=== PATIENT | female | born 1990 | race Two or more races ===

== ENCOUNTER 2020-09-28 11:53 | Emergency (ER) | payer OTHER ==
[2020-09-28 12:11] VITALS: BP 108/67; PULSE 92; TEMP 98.1; BMI 24.2
== END 2020-09-28 12:58 | disposition home or self-care (01) ==
LOC: JERFT 11:53
DX: S63.634A Sprain of interphalangeal joint of right ring finger, initial encounter (principal); W23.1XXA Caught, crushed, jammed, or pinched between stationary objects, initial encounter; Y92.810 Car as the place of occurrence of the external cause
CPT/HCPCS: 73130-TC-RT-FY; 99283-25

== ENCOUNTER 2021-02-19 17:15 | Emergency (ER) | payer OTHER | END 2021-02-19 17:30 | disposition home or self-care (01) | LOC: JVIRT 17:15 | DX: R51.9 Headache, unspecified (principal); R50.9 Fever, unspecified; Z11.52 Encounter for screening for COVID-19 | CPT/HCPCS: 87804; C9803; Q3014-GT; U0003; U0005 ==

== ENCOUNTER 2023-01-23 06:47 | Inpatient (IN) | payer OTHER ==
[2023-01-23] MEDS: ELECTROLYTE-148 SOLN 1,000 ML IV SCH (08:15)
[2023-01-23 08:31] VITALS: BMI 30.8
[2023-01-23 09:13] LABS: BASO % 0.3 % (0-2.0); EOS % 2.8 % (0-4.5); HEMATOCRIT 39.5 % (32.4-45.2); LYMPH % 16.9 % (8-40); MCH 30.6 pg (25.7-33.7); MEAN CELL VOLUME 92.7 fl (80-96); MEAN PLT VOLUME 8.7 fl (7.5-11.1); MONO % 7.3 % (3.8-10.2); NEUT % 72.7 % (42.8-82.8); PLATELET COUNT 273 10^3/uL (134-434); RBC 4.26 M/mm3 (3.60-5.2); RDW 13.3 % (11.6-15.6); WHITE BLOOD COUNT 11.5 K/mm3 (4.0-10.0)
[2023-01-23 09:19] LABS: INR 1.02 (0.83-1.09); PROTHROMBIN TIME (PATIENT) 11.8 SEC (9.7-13.0)
[2023-01-23 09:37] LABS: POTASSIUM 4.1 mmol/L (3.5-5.1)
[2023-01-23 09:39] LABS: BLOOD UREA NITROGEN 7.9 mg/dL (7-18); CALCIUM 8.5 mg/dL (8.5-10.1)
[2023-01-23 09:40] LABS: ALBUMIN 2.6 g/dl (3.4-5.0)
[2023-01-23 09:43] LABS: CREATININE 0.5 mg/dL (0.55-1.3)
[2023-01-23 09:44] LABS: BILIRUBIN,TOTAL 0.6 mg/dL (0.2-1); TOT PROT 6.1 g/dl (6.4-8.2)
[2023-01-23] MEDS: VANCOMYCIN 1,750 MG in DEXTROSE 5%-WATER - 500 ML IVPB SCH ×2 (10:55→19:25)
[2023-01-23] MEDS ORDERED: OXYTOCIN 30 UNITS in 0.9% NS 30 UNIT/500 ML INFUS.BAG IVPB ONE (14:40)
[2023-01-23] MEDS ORDERED: ELECTROLYTE-148 SOLN 1,000 ML IV SCH (14:45)
[2023-01-23] MEDS: OXYTOCIN 30 UNITS in 0.9% NS 30 UNIT/500 ML INFUS.BAG IVPB SCH (14:55)
[2023-01-24] MEDS ORDERED: CALCIUM CARBONATE 650 MG TABLET PO ONE (00:15)
[2023-01-24] MEDS: ELECTROLYTE-148 SOLN 1,000 ML IV SCH ×2 (02:00→13:46)
[2023-01-24] MEDS: OXYTOCIN 30 UNITS in 0.9% NS 30 UNIT/500 ML INFUS.BAG IVPB SCH (02:39)
[2023-01-24] MEDS: VANCOMYCIN PREMIX 1.75 GM 1,750 MG/350 ML PIGGYBACK IVPB SCH ×2 (03:18→13:45)
[2023-01-24] MEDS ORDERED: BUTORPHANOL TARTRATE 2 MG/ML VIAL IVPB ONE (07:06)
[2023-01-24] MEDS ORDERED: PROMETHAZINE HCL 25 MG/1 ML VIAL IVPB ONE (07:06)
[2023-01-24] MEDS ORDERED: BUTORPHANOL TARTRATE 2 MG/ML VIAL ONE (07:33)
[2023-01-24] MEDS ORDERED: PROMETHAZINE HCL 25 MG/1 ML VIAL ONE (07:33)
[2023-01-24] MEDS ORDERED: OXYTOCIN 20 UNITS in 0.9% NS 20 UNIT/1,000 ML INFUS.BAG IV ONE (10:33)
[2023-01-24] MEDS ORDERED: WITCH HAZEL 50% (TUCKS) 40 PAD/JAR PAD TP PRN (11:26)
[2023-01-24] MEDS ORDERED: METHYLERGONOVINE MALEATE 0.2 MG/1 ML AMP IM PRN (11:26)
[2023-01-24] MEDS ORDERED: oxyCODONE HCL 5 MG TABLET PO PRN (11:26)
[2023-01-24] MEDS ORDERED: BISACODYL 10 MG SUPP.RECT RC PRN (11:26)
[2023-01-24] MEDS ORDERED: BENZOCAINE 28 GM HEMORRHOIDAL OINTMENT TP PRN (11:26)
[2023-01-24] MEDS ORDERED: IBUPROFEN 600 MG TABLET (FP) PO PRN (11:26)
[2023-01-24] MEDS ORDERED: BENZOCAINE 20% 57 GM BOTTLE TP PRN (11:26)
[2023-01-24] MEDS ORDERED: OXYTOCIN 20 UNITS in 0.9% NS 20 UNIT/1,000 ML INFUS.BAG IV SCH (11:30)
[2023-01-24 12:36] LABS: CORD BASE EXCESS -5.9 mmol/L (0-2); CORD HCO3 22.3 mmHg (20-29); CORD PCO2 53.5 mmHg (30-78); CORD pH 7.237 (7.14-7.44)
[2023-01-24 12:41] LABS: CORD BASE EXCESS -6.1 mmol/L (0-2); CORD HCO3 20.5 mmHg (20-29); CORD PCO2 44.3 mmHg (30-78); CORD pH 7.283 (7.14-7.44)
[2023-01-24 14:32] VITALS: RESP 18
[2023-01-24] MEDS: ACETAMINOPHEN 325 MG TABLET (FP) PO PRN ×2 (14:44→20:57)
[2023-01-25 08:15] LABS: BASO % 0.2 % (0-2.0); EOS % 1.5 % (0-4.5); HEMOGLOBIN 12.3 GM/dL (10.7-15.3); MCH 30.3 pg (25.7-33.7); MCHC 32.4 g/dl (32.0-36.0); MEAN CELL VOLUME 93.5 fl (80-96); NEUT % 74.3 % (42.8-82.8); PLATELET COUNT 240 10^3/uL (134-434); RBC 4.07 M/mm3 (3.60-5.2); RDW 13.8 % (11.6-15.6); WHITE BLOOD COUNT 13.5 K/mm3 (4.0-10.0)
[2023-01-25] MEDS ORDERED: SENNOSIDES/DOCUSATE COMBO (SENNA PLUS) TABLET (UD) PO PRN (22:00)
[2023-01-26] MEDS: ACETAMINOPHEN 325 MG TABLET (FP) PO PRN (03:11)
[2023-01-26 09:47] VITALS: BP 107/66; PULSE 87; TEMP 98
== END 2023-01-26 16:50 | disposition home or self-care (01) | DRG 807 ==
LOC: JDEL 06:47 → JLDR 07:30 → J3W 01-24 14:25
PROVIDERS: ADMIT Obstetrics & Gynecology; ATTEND Obstetrics & Gynecology
PROC: 10E0XZZ Delivery of Products of Conception, External Approach (ICD-10-PCS; principal; 2023-01-23)
DX: O42.12 Full-term premature rupture of membranes, onset of labor more than 24 hours following rupture (principal); Z37.0 Single live birth; O99.824 Streptococcus B carrier state complicating childbirth; Z3A.37 37 weeks gestation of pregnancy
CPT/HCPCS: 36415; 36600; 80053; 82803; 85025; 85461; 85610; 85730; 86780; 86850; 86900; 86901; 88307-TC; J3370

== ENCOUNTER 2023-05-12 16:48 | Emergency (ER) | payer OTHER ==
[2023-05-12 17:03] VITALS: BP 110/73; PULSE 85; RESP 16; TEMP 98.5; BMI 23.6
[2023-05-12] MEDS ORDERED: ALBUTEROL SO4 2.5/IPRATROPIUM 0.5 INH SOL 3 ML VIAL.NEB. NEB ONE (18:33)
== END 2023-05-12 17:14 | disposition home or self-care (01) ==
LOC: FER 16:48
DX: S60.454A Superficial foreign body of right ring finger, initial encounter (principal); W45.8XXA Other foreign body or object entering through skin, initial encounter
CPT/HCPCS: 99282-25